=== PATIENT | male | born 1950 | race Caucasian/White ===

== ENCOUNTER 2017-04-07 07:44 | Emergency (ER) | payer MEDICARE, BC ==
[2017-04-07] MEDS ORDERED: Sodium Chloride 0.9% 10 ML Syringe FLUSH PRN (08:03)
[2017-04-07] MEDS ORDERED: Ondansetron 4 MG/2 ML SDV IVPUSH ONE (08:03)
[2017-04-07] MEDS ORDERED: Alum Hydroxide/Mag Hydroxide 15 ML, Lidocaine 2% 15 ML PO ONE ×2 (08:04)
[2017-04-07] MEDS ORDERED: Ketorolac 30 MG/ML SDV IVPUSH ONE (08:51)
[2017-04-07] MEDS ORDERED: Iopamidol 755 Mg/ML 100 ML Bottle IV ONE (08:53)
[2017-04-07] MEDS ORDERED: Sodium Chloride 0.9% 1,000 ML IV SCH (09:00)
[2017-04-07] MEDS ORDERED: HYDROmorphone 2 MG/ML SDV IVPUSH ONE (09:51)
--- NOTE | 2017-04-07 11:16 | ER ---
DATE SEEN: 04/07/2017 TIME SEEN: 0815 hours. CHIEF COMPLAINT: Abdominal pain. HISTORY OF PRESENT ILLNESS: A 66-year-old male with epigastric pain for the last 12 hours or so. Sharp pain in the epigastrium with no radiation, nothing seems to help. REVIEW OF SYSTEMS: Nausea. No chest pain or shortness of breath. PAST MEDICAL HISTORY: Gallstone, sludge and GERD. SOCIAL HISTORY: Does not smoke. He drinks occasionally. PHYSICAL EXAMINATION: VITAL SIGNS: Blood pressure 174/106, pulse is 74, and oxygenation is normal. ENT: Negative. NECK: Trachea is midline. CHEST: Clear. ABDOMEN: Soft with tenderness in the epigastrium. No rebound. LABORATORY DATA: Transaminitis and high amylase. CT revealed a gallstone pancreatitis. IMPRESSION: Acute gallstone pancreatitis. PLAN: 1 L of normal saline, Zofran, and Dilaudid IV. Send the patient to [place] for GI consultation at [facility]. /[id number] ACE/CECILIO
--- NOTE | 2017-04-08 13:57 | CR ---
INDICATION: Mid chest pain. CHEST: AP upright portable view of the chest 04/07/2017, revealed the heart to appear somewhat prominent, but emphasized by AP positioning and poor inspiration. The aorta is slightly tortuous, with question of some minimal calcification. A definite active infiltrate or effusion was not identified. However, the lungs appear to be slightly hyperaerated. Would suggest when clinically possible, fully inspiration PA and lateral views of the chest for further evaluation. IMPRESSION: No definite acute process. Possible ASHD. MTDD
== END 2017-04-07 10:15 ==
LOC: FB.ED 07:44
DX: K85.10 Biliary acute pancreatitis without necrosis or infection (principal)
CPT/HCPCS: 36415; 71010; 74177; 80053; 82150; 84484; 85025; 93005; 96361; 96374; 96375; 99285; A9270; J1170; J1885; J2405; J7040; Q9967; 93010; 99283